=== PATIENT | female | born 1950 ===

== ENCOUNTER 2017-07-27 09:25 | Emergency (ER) | payer OTHER, BC, MEDICARE ==
[2017-07-27 10:04] VITALS: BP 146/67
--- NOTE | 2017-07-27 10:35 | UC ---
Shoulder Pain HPI - HPI Summary HPI Summary: patient complaining for left arm pain for 1 week, no trauma or overuse, does sleep on that side, thinks she has slept wrong - History of Current Complaint Chief Complaint: UCUpperExtremity Stated Complaint: LEFT ARM PAIN 1 WEEK Time Seen by Provider: 07/27/17 10:11 Hx Obtained From: Patient ?: No Onset/Duration: Sudden Onset Severity Initially: Mild Severity Currently: Moderate Pain Intensity: 7 Character: Dull, Aching, Stiffness Aggravating Factor(s): Lifting, Flexion, Extension, Internal Rotation, External Rotation Alleviating Factor(s): Rest Associated Signs And Symptoms: Positive: Weakness - Allergies/Home Medications Allergies/Adverse Reactions: Allergies Allergy/AdvReac Type Severity Reaction Status Date / Time No Known Allergies Allergy Verified 07/27/17 09:53 Home Medications: Home Medications Aspirin [Aspirin 81 MG TAB] 81 mg PO DAILY 07/27/17 [History Confirmed 07/27/17] Canagliflozin (NF) [Invokana (NF)] 100 mg PO DAILY 07/27/17 [History Confirmed 07/27/17] Lisinopril/HCTZ 10/12.5(NF) [Zestoretic 1012.5(NF)] 1 tab PO DAILY 07/27/17 [ History Confirmed 07/27/17] PMH/Surg Hx/FS Hx/Imm Hx Previously Healthy: Yes - Surgical History Surgical History: Yes Surgery Procedure, Year, and Place: 2 c-sections, 2 eye surgeries. R lower leg - Family History Known Family History: Positive: Diabetes - Social History Alcohol Use: None Substance Use Type: None Smoking Status (MU): Never Smoked Tobacco Review of Systems Constitutional: Negative Skin: Negative Eyes: Negative ENT: Negative Respiratory: Negative Cardiovascular: Negative Gastrointestinal: Negative Genitourinary: Negative Motor: Negative Neurovascular: Negative Musculoskeletal: Arthralgia, Decreased ROM, Myalgia Neurological: Negative Psychological: Negative Is Patient Immunocompromised?: No All Other Systems Reviewed And Are Negative: Yes Physical Exam Triage Information Reviewed: Yes Appearance: Well-Appearing, Well-Nourished, Pain Distress Vital Signs: Initial Vital Signs Temp 97.6 F 07/27/17 09:57 Pulse 76 07/27/17 09:57 Resp 20 07/27/17 09:57 BP 146/67 07/27/17 09:57 Pulse Ox 98 01/28/18 09:57 Vital Signs Reviewed: Yes Eye Exam: Normal ENT Exam: Normal Dental Exam: Normal Neck exam: Normal Respiratory Exam: Normal Cardiovascular Exam: Normal Cardiovascular: Positive: RRR, No Murmur, Pulses Normal Abdominal Exam: Normal Abdomen Description: Positive: Nontender, No Organomegaly, Soft Bowel Sounds: Positive: Present Musculoskeletal: Positive: No Edema, Strength Limited @ - in left arm, ROM Limited @ - in left shoulder FLX, EXT, INT and EXT rot Neurological Exam: Normal Psychological Exam: Normal Skin Exam: Normal Shoulder Course/Dx - Course Course Of Treatment: hx obtained, exam performed ,exercises and stretches demonstrated and reviewed, anti inflammatory prescribed. - Differential Dx/Diagnosis Differential Diagnosis/HQI/PQRI: Arthritis, Dislocation, Fracture (Closed), Rotator Cuff Injury, Sprain, Strain Provider Diagnoses: left bicep tendonitis. shoulder pain Discharge - Discharge Plan Condition: Stable Disposition: HOME Prescriptions: Meloxicam [Mobic] 7.5 mg PO BID #28 tab Patient Education Materials: Tendinitis (ED) Referrals: Shavonne Elizondo MD [Primary Care Provider] - Additional Instructions: 1. Heat, Stretch and restrict activity to pain free limites for the next few days. 2. Start eh Meloxicam, best taken with food 3. It may take a good two weeks to feel absolutely better 4. If symtpoms worsen follow up with an orthopedic, I have included the name of Dr Russell.
== END 2017-07-27 10:45 | disposition home or self-care (01) ==
LOC: UCCORT 09:25
DX: M75.22 Bicipital tendinitis, left shoulder (principal); M25.512 Pain in left shoulder; Z79.82 Long term (current) use of aspirin
CPT/HCPCS: 99212; G0463